=== PATIENT | female | born 1940 | race Caucasian/White ===

== ENCOUNTER 2016-09-16 18:12 | Inpatient (IN) | payer MEDICARE, OTHER ==
[~2016-09-16] VITALS: Ht 162.6 cm; Wt 63.5 kg
[~2016-09-16 18:12] MED LIST: ACETAMINOPHEN 1,000 MG/100 ML IV ONE; BACITRACIN 50,000 UNITS INJ IRRIG ONE; DILAUDID 1 MG/ML AMP IV ONE; FENTANYL 100 MCG/2 ML AMP IV ONE; GLYCOPYRROLATE 0.2 MG/ML VIAL IV ONE; LIDOCAINE 2% SYR 5 ML IV ONE; NEOSTIGMINE 10 MG/10 ML VIAL IV ONE; ONDANSETRON 4 MG VIAL IV PUSH ONE; PHENYLEPHRINE 10 MG/ML VIAL IV ONE; PROPOFOL 20 ML PER ML IV ONE; ROCURONIUM 50 MG VIAL IV ONE
[2016-09-16] MEDS ORDERED: ONDANSETRON 4 MG VIAL ONE (20:21)
[2016-09-16] MEDS ORDERED: MORPHINE 4 MG/ML SYR ONE (20:21)
[2016-09-16] MEDS ORDERED: BISACODYL 10 MG SUPP RECTAL PRN (21:30)
[2016-09-16] MEDS ORDERED: ACETAMINOPHEN 325 MG TAB PO PRN (21:30)
[2016-09-16] MEDS ORDERED: SALINE FLUSH 10 ML FLUSH PRN (21:30)
[2016-09-16] MEDS ORDERED: MAG HYDROX 30 ML UDC PO PRN (21:30)
[2016-09-16] MEDS ORDERED: ALU/MAG/SIM 30 ML UDC PO PRN (21:30)
[2016-09-16] MEDS ORDERED: SODIUM CHLORIDE 0.9% 1,000 ML IV SCH (21:30)
[2016-09-16] MEDS ORDERED: BISACODYL EC 5 MG TAB PO PRN (21:30)
[2016-09-16] MEDS ORDERED: MORPHINE 4 MG/ML SYR IV PRN (21:30)
[2016-09-16] MEDS ORDERED: ONDANSETRON 4 MG VIAL IV PRN (21:30)
[2016-09-16] MEDS ORDERED: LORAZEPAM 2 MG/ML VIAL IV PRN (21:40)
[2016-09-16] MEDS ORDERED: PROPOFOL 20 ML 20 ML IV ONE (21:45)
[2016-09-16] MEDS ORDERED: FENTANYL 100 MCG/2 ML AMP ONE (21:47)
[2016-09-16] MEDS ORDERED: SODIUM CHLORIDE 0.9% 1,000 ML ONE (21:49)
[2016-09-16 23:05] VITALS: BP_SYST 138; RESP 18; TEMP 97.6
[2016-09-16] MEDS ORDERED: MIDAZOLAM 2 MG/2 ML INJ IV ONE (23:15)
[2016-09-16] MEDS ORDERED: LACT RINGERS 1,000 ML IV SCH (23:15)
[2016-09-16] MEDS ORDERED: LIDOCAINE 1% BUFFERED 1 ML SYR INTRADERM PRN (23:15)
[2016-09-16 23:22] VITALS: BMI 24.0
[2016-09-16] MEDS: SODIUM CHLORIDE 0.9% FLUSH BAG 500 ML IV SCH (23:36)
[2016-09-16 23:58] VITALS: RESP 16
[2016-09-17] VITALS (22 sets, daily range): BP systolic 105–168; RESP 9–22; TEMP 97–98.4
[2016-09-17] MEDS: MORPHINE 2 MG/ML SYR IV PRN ×4 (00:23→23:45)
[2016-09-17] MEDS ORDERED: SODIUM CHLORIDE 0.9% FLUSH BAG 500 ML IV SCH (06:00)
[2016-09-17] MEDS ORDERED: CEFAZOLIN 2,000 MG in SODIUM CHLORIDE 0.9% 100 ML IV ONE (07:00)
[2016-09-17] MEDS: SALINE FLUSH 10 ML FLUSH SCH ×2 (08:00→20:00)
[2016-09-17] MEDS ORDERED: DUONEB INH PRN (08:40)
[2016-09-17] MEDS ORDERED: ENOXAPARIN 40 MG/0.4 ML SYR SUBQ SCH (09:00)
[2016-09-17] MEDS: NICOTINE 14 MG/24 HR TDSY TRANSDERM SCH (09:00)
[2016-09-17] MEDS ORDERED: MIDAZOLAM 2 MG/2 ML INJ ONE (11:20)
[2016-09-17] MEDS ORDERED: OXYCODONE 5 MG TAB PO PRN ×2 (11:30→15:35)
[2016-09-17] MEDS ORDERED: ONDANSETRON 4 MG VIAL IV PRN ×2 (11:30→13:05)
[2016-09-17] MEDS ORDERED: MEPERIDINE 25 MG/ML IV PRN (11:30)
[2016-09-17] MEDS ORDERED: MORPHINE 2 MG/ML SYR IV PRN ×2 (11:30→13:05)
[2016-09-17] MEDS ORDERED: MORPHINE 4 MG/ML SYR IV PRN (11:30)
[2016-09-17] MEDS ORDERED: DILAUDID 1 MG/ML AMP IV PRN (11:30)
[2016-09-17] MEDS ORDERED: LORAZEPAM 0.5 MG TAB PO PRN (15:35)
[2016-09-17] MEDS: ACETAMINOPHEN 500 MG TAB PO SCH ×2 (15:35→22:26)
[2016-09-17] MEDS: OXYCODONE 5 MG TAB PO PRN (22:25)
[2016-09-17] MEDS: FAMOTIDINE 20 MG TAB PO SCH (22:26)
[2016-09-18] MEDS: OXYCODONE 5 MG TAB PO PRN ×3 (02:42→21:47)
[2016-09-18 03:41] VITALS: BP_SYST 139; RESP 16; TEMP 98.2
[2016-09-18] MEDS: SODIUM CHLORIDE 0.9% FLUSH BAG 500 ML IV SCH (05:44)
[2016-09-18] MEDS: MORPHINE 2 MG/ML SYR IV PRN (06:10)
[2016-09-18 07:00] VITALS: BP_SYST 165; RESP 16; TEMP 98.7
[2016-09-18] MEDS: ACETAMINOPHEN 500 MG TAB PO SCH ×3 (07:35→23:35)
[2016-09-18] MEDS: SALINE FLUSH 10 ML FLUSH SCH ×2 (08:00→20:00)
[2016-09-18] MEDS ORDERED: HALOPERIDOL 1 MG TAB PO PRN (08:50)
[2016-09-18] MEDS ORDERED: HALOPERIDOL 5 MG/ML VIAL IM ONE (08:50)
[2016-09-18] MEDS: NICOTINE 14 MG/24 HR TDSY TRANSDERM SCH (09:00)
[2016-09-18 11:00] VITALS: BP_SYST 148; RESP 16; TEMP 98.3
[2016-09-18 15:00] VITALS: BP_SYST 152; RESP 16; TEMP 98.9
[2016-09-18 19:19] VITALS: BP_SYST 136; RESP 18; TEMP 98.1
[2016-09-18] MEDS: HALOPERIDOL 1 MG TAB PO SCH (21:46)
[2016-09-18] MEDS: FAMOTIDINE 20 MG TAB PO SCH (21:46)
[2016-09-18 23:59] VITALS: BP_SYST 151; RESP 16; TEMP 99.8
[2016-09-19] MEDS: OXYCODONE 5 MG TAB PO PRN ×3 (02:16→22:55)
[2016-09-19 03:17] VITALS: BP_SYST 144; RESP 18; TEMP 99.1
[2016-09-19] MEDS: SODIUM CHLORIDE 0.9% FLUSH BAG 500 ML IV SCH (06:00)
[2016-09-19] MEDS: ACETAMINOPHEN 500 MG TAB PO SCH ×3 (06:40→22:55)
[2016-09-19 07:33] VITALS: BP_SYST 151; RESP 16; TEMP 98.2
[2016-09-19] MEDS: NICOTINE 14 MG/24 HR TDSY TRANSDERM SCH (07:49)
[2016-09-19] MEDS: SALINE FLUSH 10 ML FLUSH SCH ×2 (08:00→22:56)
[2016-09-19 11:40] VITALS: BP_SYST 143; RESP 16; TEMP 98.2
[2016-09-19 16:01] VITALS: BP_SYST 154; RESP 16; TEMP 97.6
[2016-09-19 19:16] VITALS: BP_SYST 128; RESP 20; TEMP 97.8
[2016-09-19 22:31] VITALS: BP_SYST 150; RESP 20; TEMP 98
[2016-09-19] MEDS: FAMOTIDINE 20 MG TAB PO SCH (22:54)
[2016-09-19] MEDS: TRAZODONE 50 MG TAB PO SCH (22:54)
[2016-09-19] MEDS: HALOPERIDOL 1 MG TAB PO SCH (22:56)
[2016-09-20] VITALS (7 sets, daily range): BP systolic 123–140; RESP 18–26; TEMP 98–98.4
[2016-09-20] MEDS: OXYCODONE 5 MG TAB PO PRN ×3 (02:12→07:11)
[2016-09-20] MEDS: SODIUM CHLORIDE 0.9% FLUSH BAG 500 ML IV SCH (06:00)
[2016-09-20] MEDS: ACETAMINOPHEN 500 MG TAB PO SCH ×3 (07:11→22:36)
[2016-09-20] MEDS: NICOTINE 14 MG/24 HR TDSY TRANSDERM SCH (08:18)
[2016-09-20] MEDS: SALINE FLUSH 10 ML FLUSH SCH ×2 (09:04→20:48)
[2016-09-20] MEDS: FAMOTIDINE 20 MG TAB PO SCH (22:33)
[2016-09-20] MEDS: TRAZODONE 50 MG TAB PO SCH (22:34)
[2016-09-20] MEDS: HALOPERIDOL 1 MG TAB PO SCH (22:34)
[2016-09-21] MEDS: OXYCODONE 5 MG TAB PO PRN ×2 (01:40→07:00)
[2016-09-21 03:55] VITALS: BP_SYST 109; RESP 16; TEMP 98.2
[2016-09-21] MEDS: SODIUM CHLORIDE 0.9% FLUSH BAG 500 ML IV SCH (06:00)
[2016-09-21] MEDS: ACETAMINOPHEN 500 MG TAB PO SCH (06:59)
[2016-09-21 07:27] VITALS: BP_SYST 140; RESP 18; TEMP 97.9
[2016-09-21] MEDS: SALINE FLUSH 10 ML FLUSH SCH (08:22)
[2016-09-21] MEDS: NICOTINE 14 MG/24 HR TDSY TRANSDERM SCH (08:29)
[2016-09-21 11:30] VITALS: BP_SYST 90; RESP 20; TEMP 98
[2016-09-21 14:55] VITALS: BP_SYST 90; RESP 20; TEMP 98
== END 2016-09-21 12:11 | DRG 494 ==
LOC: FASTR 18:12 → EMR 21:27 → ENPENDDIS 21:27 → 2NO 22:26
PROVIDERS: ADMIT Internal Medicine; ATTEND Internal Medicine
PROC: 0QHK04Z Insertion of Internal Fixation Device into Left Fibula, Open Approach (ICD-10-PCS; 2016-09-17)
PROC: 0QHH04Z Insertion of Internal Fixation Device into Left Tibia, Open Approach (ICD-10-PCS; principal; 2016-09-17 11:41)
CPT/HCPCS: 36415; 71010; 76000; 80048; 80053; 85025; 93005; 94762; 94799; 96374; 96375; 96376; 99232; 99233; 99239

== ENCOUNTER 2016-09-21 09:54 | Inpatient (IN) | payer MEDICARE, OTHER ==
[~2016-09-21] VITALS: Ht 162.6 cm; Wt 68.1 kg
[2016-09-21] MEDS ORDERED: ALU/MAG/SIM 30 ML UDC PO PRN (10:50)
[2016-09-21] MEDS ORDERED: POLYETHYLENE GLYCOL 17 GM PACKET PO PRN (10:50)
[2016-09-21] MEDS ORDERED: DUONEB INH PRN (10:50)
[2016-09-21] MEDS ORDERED: PNEUMO VAC 25 MCG/0.5 ML VL IM.VACC ONE (10:50)
[2016-09-21] MEDS ORDERED: FLEET ENEMA 132 ML BTL RECTAL PRN (10:50)
[2016-09-21] MEDS ORDERED: ACETAMINOPHEN 325 MG TAB PO PRN (10:50)
[2016-09-21] MEDS ORDERED: MAG HYDROX 30 ML UDC PO PRN (10:50)
[2016-09-21 12:35] VITALS: BP_SYST 131; BP_SYST 133; RESP 20; TEMP 97.8; TEMP 98
[2016-09-21 13:35] VITALS: BMI 25.9
[2016-09-21 19:52] VITALS: BP_SYST 150; RESP 20; TEMP 98.1
[2016-09-21] MEDS: TRAZODONE 50 MG TAB PO SCH (20:34)
[2016-09-21] MEDS: FAMOTIDINE 20 MG TAB PO SCH (20:34)
[2016-09-21] MEDS ORDERED: TUBERCULIN PPD 5 UNIT SYR ID.VACC ONE (21:00)
[2016-09-22 02:22] VITALS: BP_SYST 133; RESP 20
[2016-09-22 02:23] VITALS: TEMP 98.6
[2016-09-22] MEDS: OXYCODONE 5 MG TAB PO PRN ×2 (09:05→12:39)
[2016-09-22 10:34] VITALS: BP_SYST 118; RESP 18; TEMP 97.7
[2016-09-22 10:42] VITALS: Ht 162.6 cm; Wt 68.1 kg
[2016-09-22 15:50] VITALS: BP_SYST 134; RESP 18; TEMP 98.2
[2016-09-22] MEDS: FAMOTIDINE 20 MG TAB PO SCH (21:38)
[2016-09-22] MEDS: TRAZODONE 50 MG TAB PO SCH (21:38)
[2016-09-23 05:00] VITALS: BP_SYST 153; RESP 18; TEMP 98.1
[2016-09-23 10:46] VITALS: BP_SYST 124; RESP 20; TEMP 98.3
[2016-09-23] MEDS: OXYCODONE 5 MG TAB PO PRN (12:47)
[2016-09-23] MEDS: ASPIRIN EC 81 MG TAB PO SCH (13:50)
[2016-09-23 15:06] VITALS: BP_SYST 114; RESP 18; TEMP 97.6
[2016-09-23] MEDS ORDERED: MISSING DOSE XX ONE (19:50)
[2016-09-23] MEDS: SKIN TEST: READ AND RECORD XX SCH (21:00)
[2016-09-23] MEDS: TRAZODONE 50 MG TAB PO SCH (21:26)
[2016-09-23] MEDS: FAMOTIDINE 20 MG TAB PO SCH (21:26)
[2016-09-24 01:56] VITALS: BP_SYST 157
[2016-09-24 01:57] VITALS: BP_SYST 157; RESP 20; TEMP 98.2
[2016-09-24] MEDS: ASPIRIN EC 81 MG TAB PO SCH (09:22)
[2016-09-24 10:13] VITALS: BP_SYST 116; RESP 20; TEMP 97.8
[2016-09-24 10:15] VITALS: BP_SYST 116
[2016-09-24 20:18] VITALS: BP_SYST 103; RESP 20; TEMP 98
[2016-09-24] MEDS: FAMOTIDINE 20 MG TAB PO SCH (20:31)
[2016-09-24] MEDS: TRAZODONE 50 MG TAB PO SCH (20:31)
[2016-09-25 05:50] VITALS: BP_SYST 145; RESP 20; TEMP 98.2
[2016-09-25] MEDS: ASPIRIN EC 81 MG TAB PO SCH (08:29)
[2016-09-25 11:23] VITALS: BP_SYST 139; RESP 20; TEMP 98
[2016-09-25 15:46] VITALS: BP_SYST 107; RESP 18; TEMP 98
[2016-09-25] MEDS: FAMOTIDINE 20 MG TAB PO SCH (20:21)
[2016-09-25] MEDS: TRAZODONE 50 MG TAB PO SCH (20:21)
[2016-09-25] MEDS ORDERED: MISSING DOSE XX ONE (20:25)
[2016-09-25 20:47] VITALS: BP_SYST 108; RESP 16; TEMP 98
[2016-09-26 05:33] VITALS: BP_SYST 149; RESP 18; TEMP 97.9
[2016-09-26] MEDS: ASPIRIN EC 81 MG TAB PO SCH (08:21)
[2016-09-26 11:00] VITALS: BP_SYST 133; RESP 18; TEMP 98.1
[2016-09-26 20:26] VITALS: BP_SYST 130; RESP 20; TEMP 98.4
[2016-09-26] MEDS: TRAZODONE 50 MG TAB PO SCH (21:21)
[2016-09-26] MEDS: FAMOTIDINE 20 MG TAB PO SCH (21:22)
[2016-09-27 05:01] VITALS: BP_SYST 154; RESP 20; TEMP 97.7
[2016-09-27 05:02] VITALS: TEMP 97.7
[2016-09-27 08:18] VITALS: BP_SYST 135; RESP 20; TEMP 97.6
[2016-09-27] MEDS: ASPIRIN EC 81 MG TAB PO SCH (09:24)
[2016-09-27 15:34] VITALS: BP_SYST 129; TEMP 98.3
[2016-09-27] MEDS: TRAZODONE 50 MG TAB PO SCH (20:31)
[2016-09-27] MEDS: FAMOTIDINE 20 MG TAB PO SCH (20:31)
[2016-09-28 00:25] VITALS: BP_SYST 137; RESP 18; TEMP 98
[2016-09-28 00:26] VITALS: TEMP 98
[2016-09-28] MEDS: ASPIRIN EC 81 MG TAB PO SCH (09:07)
[2016-09-28] MEDS: OXYCODONE 5 MG TAB PO PRN ×2 (09:08→12:55)
[2016-09-28 11:07] VITALS: BP_SYST 109; RESP 18; TEMP 97.1
[2016-09-28 11:08] VITALS: RESP 18
[2016-09-28 16:17] VITALS: BP_SYST 128; RESP 20; TEMP 98.3
[2016-09-28] MEDS: TRAZODONE 50 MG TAB PO SCH (20:32)
[2016-09-28] MEDS: FAMOTIDINE 20 MG TAB PO SCH (20:33)
[2016-09-28] MEDS ORDERED: TUBERCULIN PPD 5 UNIT SYR ID.VACC ONE (21:00)
[2016-09-29] MEDS ORDERED: MISSING DOSE XX ONE (07:25)
[2016-09-29] MEDS: OXYCODONE 5 MG TAB PO PRN (07:49)
[2016-09-29] MEDS: ASPIRIN EC 81 MG TAB PO SCH (07:49)
[2016-09-29 10:10] VITALS: BP_SYST 125; RESP 20; TEMP 99.4
[2016-09-29 15:36] VITALS: BP_SYST 127; RESP 20; TEMP 97.8
[2016-09-29] MEDS: TRAZODONE 50 MG TAB PO SCH (21:01)
[2016-09-29] MEDS: FAMOTIDINE 20 MG TAB PO SCH (21:02)
[2016-09-30 00:54] VITALS: BP_SYST 150; RESP 20; TEMP 97.8
[2016-09-30] MEDS: ASPIRIN EC 81 MG TAB PO SCH (09:41)
[2016-09-30 11:15] VITALS: BP_SYST 113; RESP 16; TEMP 98.1
[2016-09-30 15:41] VITALS: BP_SYST 139; RESP 20; TEMP 98.8
[2016-09-30] MEDS: SKIN TEST: READ AND RECORD XX SCH (21:00)
[2016-09-30] MEDS: TRAZODONE 50 MG TAB PO SCH (21:17)
[2016-09-30] MEDS: FAMOTIDINE 20 MG TAB PO SCH (21:17)
[2016-10-01 03:12] VITALS: BP_SYST 144; RESP 20; TEMP 97.9
[2016-10-01] MEDS: ASPIRIN EC 81 MG TAB PO SCH (08:43)
[2016-10-01 11:05] VITALS: BP_SYST 131; RESP 18; TEMP 97.8
[2016-10-01 15:15] VITALS: BP_SYST 142; RESP 18; TEMP 98.1
[2016-10-01] MEDS: FAMOTIDINE 20 MG TAB PO SCH (20:22)
[2016-10-01] MEDS: TRAZODONE 50 MG TAB PO SCH (20:22)
[2016-10-02 03:40] VITALS: BP_SYST 144; RESP 18; TEMP 97.5
[2016-10-02] MEDS: ASPIRIN EC 81 MG TAB PO SCH (09:00)
[2016-10-02 13:49] VITALS: BP_SYST 134; RESP 18; TEMP 97.7
[2016-10-02 18:40] VITALS: BP_SYST 146; RESP 20; TEMP 97.6
[2016-10-02] MEDS: FAMOTIDINE 20 MG TAB PO SCH (20:32)
[2016-10-02] MEDS: TRAZODONE 50 MG TAB PO SCH (20:32)
[2016-10-03 02:48] VITALS: BP_SYST 129; RESP 20; TEMP 97.9
[2016-10-03 09:14] VITALS: BP_SYST 122; RESP 18; TEMP 98.1
[2016-10-03] MEDS: OXYCODONE 5 MG TAB PO PRN (09:47)
[2016-10-03] MEDS: ASPIRIN EC 81 MG TAB PO SCH (09:47)
[2016-10-03] MEDS: BACITRACIN OINT TOPICAL SCH ×2 (14:32→23:11)
[2016-10-03] MEDS ORDERED: CEPHALEXIN 500 MG CAP PO SCH (16:00)
[2016-10-03 19:50] VITALS: BP_SYST 124; RESP 20; TEMP 98
[2016-10-03] MEDS: FAMOTIDINE 20 MG TAB PO SCH (21:40)
[2016-10-03] MEDS: TRAZODONE 50 MG TAB PO SCH (21:41)
[2016-10-04 01:09] VITALS: BP_SYST 140; RESP 20; TEMP 97.6
[2016-10-04] MEDS ORDERED: MISSING DOSE XX ONE (08:35)
[2016-10-04] MEDS: ASPIRIN EC 81 MG TAB PO SCH (09:18)
[2016-10-04 10:40] VITALS: BP_SYST 135; RESP 20; TEMP 97.9
[2016-10-04 15:33] VITALS: BP_SYST 135; RESP 20; TEMP 97.9
[2016-10-04 15:42] VITALS: BP_SYST 131; RESP 16; TEMP 98.7
[2016-10-04] MEDS: BACITRACIN OINT TOPICAL SCH (15:55)
== END 2016-10-04 14:00 | disposition home health service (06) | DRG 561 ==
LOC: NF 12:35
PROVIDERS: ADMIT Family Medicine; ATTEND Family Medicine
DX: S82.842D Displaced bimalleolar fracture of left lower leg, subsequent encounter for closed fracture with routine healing (principal); J44.9 Chronic obstructive pulmonary disease, unspecified; W19.XXXD Unspecified fall, subsequent encounter; F41.9 Anxiety disorder, unspecified; F32.9 Major depressive disorder, single episode, unspecified; F17.210 Nicotine dependence, cigarettes, uncomplicated
CPT/HCPCS: 36415; 80048; 85025; 86580; 94799; 99306; 99308; 99309; 99316